=== PATIENT | female | born 1975 | race Two or more races ===

== ENCOUNTER → 2023-03-07 | Emergency (ER) | payer OTHER ==
[~2023-03-07] VITALS: Ht 160 cm; Wt 43.5 kg
[~2023-03-07] MED LIST: MYSOLINE250 MG; PAXIL20 MG; PROPRANOLOL HCL10 MG PO; SEROQUEL200 MG PO; WELLBUTRIN XL300 MG PO
[2023-03-07 15:31] LABS: HEMATOCRIT 38.5 % (36.0-45.00); HEMOGLOBIN 13.1 g/dL (12.0-15.00); MEAN CELL VOLUME 97.3 fL (80.00-100.00); MEAN CORPUSCULAR HGB CONC 33.9 g/dl (32.0-36.0); PLATELET COUNT 383 K/uL (150-450); RED BLOOD COUNT 3.96 M/uL (4.00-6.00); RED CELL DISTRIBUTION WIDTH 13.3 % (11.5-14.5)
[2023-03-07 15:44] LABS: INR < 0.93; PARTIAL THROMBOPLASTIN TIME 25.1 SECONDS (22.0-34.0); PROTHROMBIN TIME 9.8 SECONDS (9.0-11.5)
[2023-03-07 15:51] LABS: ALBUMIN 4.1 gm/dL (3.4-5.0); BILIRUBIN TOTAL 0.24 mg/dL (0.3-1.2); CALCIUM 10.1 mg/dL (8.5-10.1); CREATININE SERUM 1.71 mg/dL (0.55-1.02); GLOBULINA 3.9 G/DL (2.4-3.5); POTASSIUM 5.23 mEq/L (3.5-5.1)
== END | disposition left against medical advice (07) ==
LOC: ER 12:33
PROVIDERS: General Practice
DX: K52.89 Other specified noninfective gastroenteritis and colitis (principal); K85.90 Acute pancreatitis without necrosis or infection, unspecified; Z91.013 Allergy to seafood
CPT/HCPCS: 74177; 96365; 99284; J3490